=== PATIENT | female | born 1945 | race Caucasian/White ===

== ENCOUNTER → 2016-08-05 | Outpatient (CLI) | payer MEDICARE, OTHER | END | disposition home or self-care (01) | LOC: PTH.S 08:44 | DX: Z01.818 Encounter for other preprocedural examination (principal) ==

== ENCOUNTER 2016-08-23 09:12 | Day surgery (SDC) | payer MEDICARE, OTHER ==
[~2016-08-23] VITALS: Ht 152.4 cm; Wt 92.4 kg
--- NOTE | 2016-09-07 10:44 | OR ---
ADMIT: 08/23/2016 RM/LOC: [facility] MR#: [id number] [address] [place] RODRIGEZ [address] [place] [id number] Operative/Delivery Room Report SEX: F AGE: 71 : 1945 SURGERY DATE: 08/23/2016 SURGEON: Gian Castillo MD PREOPERATIVE DIAGNOSIS: Morbid obesity. POSTOPERATIVE DIAGNOSIS: Morbid obesity. PROCEDURE PERFORMED: Laparoscopic gastric band placement with Allergan AP standard band. BINDING STITCHER: Will Bergeron M.D. ANESTHESIA: General endotracheal with addition of Marcaine in the wounds postprocedure. ESTIMATED BLOOD LOSS: Less than 10 mL. DESCRIPTION OF PROCEDURE: After appropriate informed consent was obtained, the patient was brought to the operating room. General endotracheal anesthesia was induced. The patient's abdomen was prepped and draped in the sterile fashion. A left upper quadrant incision was created. Veress introduced. The abdomen was insufflated with CO2. A 5 mm trocar was placed off to the left lateral side. Camera was introduced. The abdomen surveyed. She had no intraabdominal adhesions. A 15 mm port was then placed in the left upper quadrant incision. Three additional 5 mm ports were then placed. The liver retractors were placed up underneath the left lobe of the liver. She did have somewhat enlarged liver but I was able to retract this way. The gastrohepatic ligament was then opened with Harmonic Scalpel. The right gain was identified and the space opened anterior to the right gian to start the retrogastric tunnel. I then turned my attention to the greater curve, took down some adhesions around the angle of His and then removed a pretty large fat pad from the anterior surface of the stomach. With this removed, the calibration tube was then passed down from above by Anesthesia, 15 mL of air was placed and the calibration tube pulled snugly up against the GE junction. There was no evidence of hiatal hernia, so the calibration tube was deflated and removed. I selected an Allergan AP standard band. The laparoscopic grasper was bluntly passed posterior to the stomach and retrogastric tunnel was created. This came through very easily near the angle of his. The band was introduced into the abdominal cavity. The tubing and band were then tunneled retrogastrically. The band was temporarily closed and the first plication stitch was placed with an 0 Ethibond suture to plicate the stomach over the band. The band was then locked down and an additional 0 Ethibond suture using the endo-stitch was used to plicate the stomach over the band. ADMIT: 08/23/2016 RM/LOC: W.06 [facility] MR#: [id number] [id number] [facility] [place] [address] Operative/Delivery Room Report SEX: F AGE: 71 : 1945 [address], the band lay nicely around the stomach with no tension. The tubing was brought out through the 15 mm port site. The liver retractor was removed. Everything appeared hemostatic. The ports were then removed and the abdomen desufflated. Subcutaneous pocket was then made at the tubing exit site. The fascial defect around the tubing was closed with 2-0 Vicryl sutures. Tubing was cut, attached to the port, and the port was then sewn down to the fascia using 4 total 0 Ethibond sutures. With the port secured, all the wounds were then infiltrated with Marcaine. The wounds were then closed with 3-0 Vicryl in the dermal layer and running 4-0 Monocryl in the subcuticular layer. Sterile dressings were applied. Dr. Bergeron assisted in the entire procedure. His help was necessary for retraction and camera driving. Gian Castillo MD/ odalis JOB #: [id number] CC: Gian Castillo, Attending Physician Jass Pollard, Family Physician
== END 2016-08-23 16:25 | disposition home or self-care (01) ==
LOC: WOR 09:12 → UNDOADMOB 09:12 → SSS 09:12 → WOR 09:12 → EDSTATUS 10:52 → SSS 16:25
PROC: 0DV64CZ Restriction of Stomach with Extraluminal Device, Percutaneous Endoscopic Approach (ICD-10-PCS; principal; 2016-08-23)
DX: E66.01 Morbid (severe) obesity due to excess calories (principal); Z68.39 Body mass index [BMI] 39.0-39.9, adult; E11.9 Type 2 diabetes mellitus without complications; I10 Essential (primary) hypertension; E07.9 Disorder of thyroid, unspecified; Z98.49 Cataract extraction status, unspecified eye; M19.90 Unspecified osteoarthritis, unspecified site; Z98.890 Other specified postprocedural states; Z90.710 Acquired absence of both cervix and uterus; Z98.51 Tubal ligation status; Z79.899 Other long term (current) drug therapy; Z88.0 Allergy status to penicillin; Z96.651 Presence of right artificial knee joint